=== PATIENT | male | born 1960 | race Caucasian/White ===

== ENCOUNTER 2016-07-11 07:10 | Outpatient (CLI) | payer BC, OTHER | END 2016-07-11 07:11 | disposition home or self-care (01) | DX: E78.1 Pure hyperglyceridemia (principal); Z12.5 Encounter for screening for malignant neoplasm of prostate ==

== ENCOUNTER 2016-09-20 10:07 | Outpatient (CLI) | payer OTHER ==
--- NOTE | 2016-09-20 14:12 | Ultrasound Report ---
SCROTAL DUPLEX: 09/20/2016 CLINICAL INDICATION: Left testicular discomfort. TECHNIQUE: Real-time sonographic vascular imaging was performed by the design and sales consultant through the scrot um utilizing both color-flow and Doppler spectral analysis. Multiple authorization representative static images we re saved for review. FINDINGS: The right testicle measures 4.8 x 3.5 x 2.4 cm, and the left testicle measures 4.5 x 3.2 x 2.7 cm. Both testicles demonstrate normal flow and echotexture. Trace bilateral hydroceles are pre sent. The epididymides are unremarkable. No varicocele or hernia is identified. IMPRESSION: TRACE BILATERAL HYDROCELES. NO INTRATESTICULAR ABNORMALITY. JOB #: [id number] EXT JOB #:
== END 2016-09-20 10:08 | disposition home or self-care (01) ==
LOC: DI 10:07
PROVIDERS: ATTEND Family Medicine
DX: N43.3 Hydrocele, unspecified (principal)
CPT/HCPCS: 76870

== ENCOUNTER 2016-11-20 08:28 | Emergency (ER) | payer OTHER ==
[2016-11-20 08:41] VITALS: BP 146/98
[2016-11-20] MEDS ORDERED: NAPROXEN 250 MG TABLET PO STA (09:04)
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
[2016-11-20] MEDS ORDERED: NAPROXEN 250 MG TABLET PO ONE (09:10)
== END 2016-11-20 09:13 | disposition home or self-care (01) ==
LOC: ED 08:28
DX: T22.192A Burn of first degree of multiple sites of left shoulder and upper limb, except wrist and hand, initial encounter (principal); T22.191A Burn of first degree of multiple sites of right shoulder and upper limb, except wrist and hand, initial encounter; T20.19XA Burn of first degree of multiple sites of head, face, and neck, initial encounter; X08.8XXA Exposure to other specified smoke, fire and flames, initial encounter; Y92.219 Unspecified school as the place of occurrence of the external cause; Y99.0 Civilian activity done for income or pay; I10 Essential (primary) hypertension; K21.9 Gastro-esophageal reflux disease without esophagitis
CPT/HCPCS: 1040M; 99282; 99283; A9270

== ENCOUNTER 2016-12-27 15:32 | Outpatient (CLI) | payer OTHER ==
[2016-12-27 13:17] LABS: BASOPHILS % (AUTO) 0.2 %; EOSINOPHILS # (AUTO) 0.1 10^3/uL (0.0-0.7); EOSINOPHILS % (AUTO) 0.9 %; HCT - HEMATOCRIT 38.4 % (42.0-52.0); HGB - HEMOGLOBIN 13.4 g/dL (14.0-18.0); LYMPHOCYTES # (AUTO) 1.5 10^3/uL (1.5-3.5); LYMPHOCYTES % (AUTO) 20.9 %; MEAN CORPUSCULAR HGB CONC 34.9 g/dL (32.0-36.0); MEAN CORPUSCULAR VOLUME 85.9 fL (80.0-94.0); MONOCYTES # (AUTO) 0.5 10^3/uL (0.0-1.0); MONOCYTES % (AUTO) 6.9 %; NEUTROPHILS # (AUTO) 5.3 10^3/uL (1.5-6.6); NEUTROPHILS % (AUTO) 71.1 %; RED BLOOD COUNT 4.46 10^6/uL (4.70-6.10); RED CELL DISTRIBUTION WIDTH 14.9 % (12.0-15.0); UNCORRECTED WHITE BLOOD COUNT 7.4 x10^3/uL; WHITE BLOOD COUNT 7.4 x10^3/uL (4.8-10.8)
[2016-12-27 13:45] LABS: ALBUMIN/GLOBULIN RATIO 1.7 (1.0-2.2); BILIRUBIN,TOTAL 1.3 mg/dL (0.2-1.0); BUN - BLOOD UREA NITROGEN 18 mg/dL (6-20); CALCIUM 9.2 mg/dL (8.5-10.3); CARBON DIOXIDE - CO2 25 mmol/L (21-32); CHLORIDE 103 mmol/L (101-111); CHOL/HDL RATIO 3.4 (<5.0); CHOLESTEROL 161 mg/dL; CREATININE 0.9 mg/dL (0.6-1.2); GFR - MDRD 87 (>89); GLUCOSE 103 mg/dL (70-100); HDL CHOLESTEROL 48 mg/dL; LDL/HDL RATIO 1.7 (<3.6); SODIUM 135 mmol/L (135-145); TOTAL PROTEIN 7.2 g/dL (6.7-8.2); TRIGLYCERIDES 155 mg/dL; VLDL CHOLESTEROL 31 mg/dL
[2016-12-27 13:53] LABS: HEMOGLOBIN A1C 0.44 g/dL
== END 2016-12-27 15:33 | disposition home or self-care (01) ==
LOC: LAB.WCP 15:32
PROVIDERS: ATTEND Family Medicine
DX: E78.1 Pure hyperglyceridemia (principal); R73.01 Impaired fasting glucose; I10 Essential (primary) hypertension
CPT/HCPCS: 36415; 80053; 80061; 83036; 85025

== ENCOUNTER 2017-06-10 13:04 | Outpatient (CLI) | payer OTHER ==
--- NOTE | 2017-06-10 14:50 | XRAY Report ---
BONE LENGTH STUDY: 06/10/2017 CLINICAL INDICATION: History of trauma, leg length discrepancy. FINDINGS: AP scanogram of the lower extremities was performed. The right femur measures 51.2 cm, and the left femur measures 52.0 cm. Right lower leg measures 39.6 cm, and the left lower leg measures 39.6 cm. IMPRESSION: LESS THAN 1 CM FEMORAL LENGTH DISCREPANCY, RIGHT 8 MM SHORTER THAN LEFT. TD: 06/10/2017 14:50
== END 2017-06-10 13:05 | disposition home or self-care (01) ==
LOC: DI 13:04
PROVIDERS: ATTEND Podiatrist
DX: M21.751 Unequal limb length (acquired), right femur (principal)
CPT/HCPCS: 77073

== ENCOUNTER 2017-06-24 07:07 | Outpatient (CLI) | payer OTHER ==
[2017-06-24 12:28] LABS: BASOPHILS % (AUTO) 0.3 %; EOSINOPHILS # (AUTO) 0.1 10^3/uL (0.0-0.7); EOSINOPHILS % (AUTO) 1.8 %; HGB - HEMOGLOBIN 13.1 g/dL (14.0-18.0); LYMPHOCYTES # (AUTO) 1.9 10^3/uL (1.5-3.5); LYMPHOCYTES % (AUTO) 32.9 %; MEAN CORPUSCULAR HEMOGLOBIN 29.5 pg (27.0-31.0); MEAN CORPUSCULAR HGB CONC 34.9 g/dL (32.0-36.0); MEAN CORPUSCULAR VOLUME 84.4 fL (80.0-94.0); MEAN PLATELET VOLUME 7.8 fL (7.4-11.4); MONOCYTES # (AUTO) 0.3 10^3/uL (0.0-1.0); MONOCYTES % (AUTO) 5.8 %; NEUTROPHILS # (AUTO) 3.5 10^3/uL (1.5-6.6); NEUTROPHILS % (AUTO) 59.2 %; PLT - PLATELET COUNT 209 10^3/uL (130-450); RED BLOOD COUNT 4.44 10^6/uL (4.70-6.10); RED CELL DISTRIBUTION WIDTH 15.3 % (12.0-15.0); WHITE BLOOD COUNT 5.8 x10^3/uL (4.8-10.8)
[2017-06-24 12:44] LABS: ALBUMIN 4.7 g/dL (3.2-5.5); ALBUMIN/GLOBULIN RATIO 1.8 (1.0-2.2); ALKALINE PHOSPHATASE 32 IU/L (42-121); ALT ALANINE AMINOTRANSFERASE 62 IU/L (10-60); AST ASPARTATE AMINOTRANSFERASE 43 IU/L (10-42); BILIRUBIN,TOTAL 1.1 mg/dL (0.2-1.0); BUN - BLOOD UREA NITROGEN 18 mg/dL (6-20); CALCIUM 9.2 mg/dL (8.5-10.3); CARBON DIOXIDE - CO2 26 mmol/L (21-32); CHLORIDE 104 mmol/L (101-111); CHOL/HDL RATIO 3.2 (<5.0); CHOLESTEROL 138 mg/dL; GFR - MDRD 77 (>89); GLUCOSE 101 mg/dL (70-100); HDL CHOLESTEROL 43 mg/dL; LDL CHOLESTEROL,CALCULATED 70 mg/dL; LDL/HDL RATIO 1.6 (<3.6); SODIUM 136 mmol/L (135-145); TOTAL PROTEIN 7.3 g/dL (6.7-8.2); VLDL CHOLESTEROL 25 mg/dL
[2017-06-24 13:22] LABS: HB2 TOTAL 13.9 g/dL; HEMOGLOBIN A1C 0.43 g/dL
== END 2017-06-24 07:08 | disposition home or self-care (01) ==
LOC: LAB.WCP 07:07
PROVIDERS: ATTEND Family Medicine
DX: Z00.00 Encounter for general adult medical examination without abnormal findings (principal); E78.1 Pure hyperglyceridemia; I10 Essential (primary) hypertension; R73.01 Impaired fasting glucose
CPT/HCPCS: 36415; 80053; 80061; 83036; 83721; 84443; 85025

== ENCOUNTER 2017-08-07 14:10 | Outpatient (CLI) | payer OTHER ==
[2017-08-07 19:14] LABS: ALBUMIN 4.6 g/dL (3.2-5.5); ALBUMIN/GLOBULIN RATIO 1.8 (1.0-2.2); BILIRUBIN,TOTAL 1.1 mg/dL (0.2-1.0); CALCIUM 9.4 mg/dL (8.5-10.3); TOTAL PROTEIN 7.1 g/dL (6.7-8.2)
== END 2017-08-07 14:11 | disposition home or self-care (01) ==
LOC: LAB.WCP 14:10
PROVIDERS: ATTEND Family Medicine
DX: R74.8 Abnormal levels of other serum enzymes (principal); Z12.5 Encounter for screening for malignant neoplasm of prostate
CPT/HCPCS: 36415; 80053; 84153

== ENCOUNTER 2017-10-08 17:55 | Outpatient (CLI) | payer OTHER ==
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
== END 2017-10-08 17:56 | disposition home or self-care (01) ==
LOC: DI 17:55
PROVIDERS: ATTEND Family Medicine
DX: S80.01XA Contusion of right knee, initial encounter (principal); M25.462 Effusion, left knee; M25.461 Effusion, right knee
CPT/HCPCS: 76882

== ENCOUNTER 2018-01-14 07:10 | Outpatient (CLI) | payer OTHER ==
[2018-01-14 13:55] LABS: BASOPHILS % (AUTO) 0.3 %; EOSINOPHILS # (AUTO) 0.1 10^3/uL (0.0-0.7); EOSINOPHILS % (AUTO) 1.3 %; HGB - HEMOGLOBIN 13.7 g/dL (14.0-18.0); LYMPHOCYTES # (AUTO) 1.9 10^3/uL (1.5-3.5); LYMPHOCYTES % (AUTO) 31.4 %; MEAN CORPUSCULAR HEMOGLOBIN 30.1 pg (27.0-31.0); MEAN CORPUSCULAR VOLUME 86.1 fL (80.0-94.0); MONOCYTES # (AUTO) 0.3 10^3/uL (0.0-1.0); NEUTROPHILS # (AUTO) 3.7 10^3/uL (1.5-6.6); PLT - PLATELET COUNT 227 10^3/uL (130-450); RED BLOOD COUNT 4.56 10^6/uL (4.70-6.10); RED CELL DISTRIBUTION WIDTH 14.8 % (12.0-15.0); WHITE BLOOD COUNT 5.9 x10^3/uL (4.8-10.8)
[2018-01-14 14:03] LABS: ALBUMIN 4.5 g/dL (3.2-5.5); ALBUMIN/GLOBULIN RATIO 1.6 (1.0-2.2); BILIRUBIN,TOTAL 1.5 mg/dL (0.2-1.0); CALCIUM 9.5 mg/dL (8.5-10.3); TOTAL PROTEIN 7.3 g/dL (6.7-8.2)
== END 2018-01-14 07:11 | disposition home or self-care (01) ==
LOC: LAB.WCP 07:10
PROVIDERS: ATTEND Physician Assistant
DX: R74.8 Abnormal levels of other serum enzymes (principal); I10 Essential (primary) hypertension
CPT/HCPCS: 36415; 80053; 85025

== ENCOUNTER 2018-04-08 07:34 | Outpatient (CLI) | payer OTHER ==
--- NOTE | 2018-04-08 12:19 | MRI Report ---
Reason: L KNEE PAIN LOCKING Procedure Date: 04/08/2018 Accession Number: [id number] / [id number] Procedure: MRI - Knee LT W/O CPT Code: FULL RESULT: EXAM: LEFT KNEE MRI WITHOUT CONTRAST EXAM DATE: 04/08/2018 08:23 AM. CLINICAL HISTORY: Left knee pain for 2 years. COMPARISON: KNEE 3 VIEW LT 05/10/2016 8:15 AM. TECHNIQUE: Multiplanar, multisequence T1-weighted and fluid-sensitive sequences of the knee without contrast. Other: None. FINDINGS: Bones and Articular Cartilage: Grade II chondromalacia at the medial femoral condyle and medial tibial plateau. Grade II chondromalacia at the lateral femoral condyle and lateral tibial plateau. Small full-thickness articular cartilage fissure at the medial patellar facet. Focal grade II chondromalacia and small subcortical cyst at the femoral trochlear groove. No patellar subluxation. No acute fracture. Enthesophyte at the anterosuperior aspect of the patella. Medial Meniscus: Focal fraying or tiny radial tear at the free edge of the posterior horn. Lateral Meniscus: Free edge fraying at the lateral meniscal body. Grade 2 signal versus a horizontal tear at the medial aspect of the anterior horn and the anterior meniscal root ligament. Cruciate Ligaments: The anterior and posterior cruciate ligaments are intact. Collateral Ligaments: The medial collateral and lateral collateral ligamentous structures are intact. Tendons: The quadriceps, patellar, semimembranosus, and popliteus tendons are unremarkable. Musculature: No edema or fatty atrophy. Other: No effusion. No popliteal cyst. No loose bodies. The medial and lateral retinacula are intact. The subcutaneous tissues and fat pads are unremarkable. IMPRESSION: 1. Tricompartmental chondromalacia. 2. Focal fraying or a tiny radial tear at the free edge of the posterior horn medial meniscus. 3. Free edge fraying at the lateral meniscal body. Grade 2 signal versus a horizontal tear at the medial aspect of the anterior horn and anterior meniscal root ligament of the lateral meniscus. [facility] MUSCULOSKELETAL RADIOLOGY SECTION
== END 2018-04-08 07:35 | disposition home or self-care (01) ==
LOC: DI 07:34
PROVIDERS: ATTEND Orthopaedic Surgery
DX: M94.262 Chondromalacia, left knee (principal); S83.242A Other tear of medial meniscus, current injury, left knee, initial encounter; S83.282A Other tear of lateral meniscus, current injury, left knee, initial encounter

== ENCOUNTER 2018-09-04 08:00 | Outpatient (CLI) | payer OTHER ==
[2018-09-04 14:15] LABS: ALBUMIN 4.6 g/dL (3.2-5.5); ALBUMIN/GLOBULIN RATIO 1.5 (1.0-2.2); CALCIUM 9.9 mg/dL (8.5-10.3); CREATININE 0.9 mg/dL (0.6-1.2); TOTAL PROTEIN 7.7 g/dL (6.7-8.2)
== END 2018-09-04 23:59 | disposition home or self-care (01) ==
LOC: LAB.WCP 08:00
PROVIDERS: ATTEND Family Medicine
DX: R74.8 Abnormal levels of other serum enzymes (principal)
CPT/HCPCS: 36415; 80053

== ENCOUNTER 2018-11-13 11:47 | Emergency (ER) | payer OTHER ==
[2018-11-13 12:15] VITALS: BP 126/80
[2018-11-13] MEDS ORDERED: BUFFERED LIDOCAINE 10 ML SYRINGE SUBQ STA (12:25)
[2018-11-13] MEDS ORDERED: TETANUS/DIPHTHERIA/PERTUSSIS 0.5 ML SYRINGE IM ONE (12:44)
--- NOTE | 2018-11-13 12:47 | ED Physician Documentation ---
PD HPI UPPER EXT INJURY - Stated complaint Stated Complaint: FOREIGN OBJECT IN R ARM - Chief complaint Chief Complaint: Ext Problem - History obtained from History obtained from: Patient - History of Present Illness Location: Right (58-year-old gentleman with unknown tetanus status was at work today, he was lifting a piece of plywood and it rubbed against his right forearm and he has a splinter retained in the right forearm. No other injuries. Pain is mild.) Review of Systems Constitutional: reports: Reviewed and negative Throat: reports: Reviewed and negative Cardiac: reports: Reviewed and negative PD PAST MEDICAL HISTORY - Past Medical History Past Medical History: Yes Cardiovascular: Hypertension Respiratory: None GI: GERD : None HEENT: None Psych: None Musculoskeletal: None Derm: None - Past Surgical History Past Surgical History: Yes - Present Medications Home Medications: Ambulatory Orders Medication Instructions Recorded Confirmed Fexofenadine [Terrie] 180 mg PO DAILY 04/27/13 04/27/13 Glucosamine Sulfate Dipot Chlr 1,000 mg PO DAILY 04/27/13 04/27/13 [Glucosamine] Lisinopril/Hydrochlorothiazide 1 each PO DAILY 04/27/13 04/27/13 [Lisinopril-Hctz 10-12.5 mg Tab] Metoprolol Succinate 50 mg PO DAILY 04/27/13 04/27/13 Omeprazole [Prilosec] 20 mg PO DAILY 04/27/13 04/27/13 Fluticasone 110 Mcg [Flovent] 1 spray DAILY 11/20/16 11/20/16 - Allergies Allergies/Adverse Reactions: Allergies Allergy/AdvReac Type Severity Reaction Status Date / Time No Known Drug Allergies Allergy Verified 04/26/13 16:30 - Social History Does the pt smoke?: No Smoking Status: Never smoker PD ED PE NORMAL - Vitals Vital signs reviewed: Yes - General General: Alert and oriented X 3, No acute distress - Extremities Extremities: Other (There is a palpable subcutaneous foreign body measuring maybe 1 to 2 cm long consistent with a splinter in the mid lateral right forearm ) - Neuro Neuro: Alert and oriented X 3, Normal speech Results - Vitals Vitals: Vital Signs - 24 hr 11/13/18 12:13 Temperature 36.5 C Heart Rate 63 Respiratory 14 Rate Blood Pressure 126/80 O2 Saturation 100 Oxygen O2 Source Room air Procedures - FB removal FB location: Subcutaneous FB removal preparation: Local anesthesia-specify (Buffered lidocaine) Removal method: Other (After prep with Hibiclens and sterile draping a tiny incision was made and I was a to grasp the splinter and was removed apparently in its entirety. Bandage was placed.) Departure - Departure Disposition: 01 Home, Self Care Clinical Impression: Foreign body in subcutaneous tissue Condition: Good Record reviewed to determine appropriate education?: Yes Instructions: ED Foreign Body Soft Tissue Removed Comments: Return if you develop signs of infection, increased pain, swelling, drainage, redness. Otherwise you can simply wash it with soap and water daily and keep it covered with a Band-Aid for a few days.
== END 2018-11-13 12:54 | disposition home or self-care (01) ==
LOC: ED 11:47
DX: S50.851A Superficial foreign body of right forearm, initial encounter (principal); W45.8XXA Other foreign body or object entering through skin, initial encounter; Y93.89 Activity, other specified; Y99.0 Civilian activity done for income or pay; I10 Essential (primary) hypertension
CPT/HCPCS: 10120; 1040M; 90471; 90715; 99282; 99283

== ENCOUNTER 2018-12-09 08:00 | Outpatient (CLI) | payer OTHER ==
[2018-12-09 11:51] LABS: BASOPHILS % (AUTO) 0.2 %; EOSINOPHILS # (AUTO) 0.1 10^3/uL (0.0-0.7); EOSINOPHILS % (AUTO) 1.1 %; HGB - HEMOGLOBIN 13.2 g/dL (14.0-18.0); LYMPHOCYTES # (AUTO) 1.7 10^3/uL (1.5-3.5); LYMPHOCYTES % (AUTO) 32.1 %; MEAN CORPUSCULAR HGB CONC 33.3 g/dL (32.0-36.0); MONOCYTES # (AUTO) 0.3 10^3/uL (0.0-1.0); MONOCYTES % (AUTO) 4.7 %; NEUTROPHILS # (AUTO) 3.3 10^3/uL (1.5-6.6); NEUTROPHILS % (AUTO) 61.5 %; PLT - PLATELET COUNT 211 10^3/uL (130-450); RED BLOOD COUNT 4.55 10^6/uL (4.70-6.10); RED CELL DISTRIBUTION WIDTH 14.9 % (12.0-15.0); WHITE BLOOD COUNT 5.4 x10^3/uL (4.8-10.8)
[2018-12-09 12:50] LABS: ALBUMIN 4.7 g/dL (3.2-5.5); ALBUMIN/GLOBULIN RATIO 1.7 (1.0-2.2); ALKALINE PHOSPHATASE 35 IU/L (42-121); ALT ALANINE AMINOTRANSFERASE 38 IU/L (10-60); AST ASPARTATE AMINOTRANSFERASE 30 IU/L (10-42); BILIRUBIN,TOTAL 1.4 mg/dL (0.2-1.0); BUN - BLOOD UREA NITROGEN 22 mg/dL (6-20); CALCIUM 9.6 mg/dL (8.5-10.3); CARBON DIOXIDE - CO2 26 mmol/L (21-32); CHLORIDE 103 mmol/L (101-111); CHOL/HDL RATIO 3.3 (<5.0); CHOLESTEROL 144 mg/dL; GFR - MDRD 77 (>89); GLUCOSE 94 mg/dL (70-100); HDL CHOLESTEROL 43 mg/dL; LDL CHOLESTEROL,CALCULATED 76 mg/dL; LDL/HDL RATIO 1.8 (<3.6); SODIUM 137 mmol/L (135-145); TOTAL PROTEIN 7.5 g/dL (6.7-8.2); VLDL CHOLESTEROL 25 mg/dL
[2018-12-09 13:11] LABS: HB2 TOTAL 13.8 g/dL; HEMOGLOBIN A1C 0.48 g/dL; HEMOGLOBIN A1C % 5.3 % (4.6-6.2)
== END 2018-12-09 23:59 | disposition home or self-care (01) ==
LOC: LAB.WCP 08:00
PROVIDERS: ATTEND Family Medicine
DX: R74.8 Abnormal levels of other serum enzymes (principal); I10 Essential (primary) hypertension; Z12.5 Encounter for screening for malignant neoplasm of prostate; E78.1 Pure hyperglyceridemia; R73.01 Impaired fasting glucose; F41.9 Anxiety disorder, unspecified
CPT/HCPCS: 36415; 80053; 80061; 83036; 83721; 84153; 84443; 85025

== ENCOUNTER 2019-01-19 11:19 | Day surgery (SDC) | payer OTHER ==
[2019-01-19] MEDS ORDERED: LACTATED RINGERS 1,000 ML IV ONE (11:57)
[2019-01-19] MEDS ORDERED: LIDO GARGLE 30 ML BOTTLE PO ONE (13:28)
[2019-01-19] MEDS ORDERED: LIDO GARGLE 30 ML BOTTLE ONE (13:29)
[2019-01-19 15:24] VITALS: BP 123/89
== END 2019-01-19 11:20 | disposition home or self-care (01) ==
LOC: SDS 11:19
PROVIDERS: ATTEND Internal Medicine Gastroenterology
PROC: 0DB78ZZ Excision of Stomach, Pylorus, Via Natural or Artificial Opening Endoscopic (ICD-10-PCS; 2019-01-19)
PROC: 0DJD8ZZ Inspection of Lower Intestinal Tract, Via Natural or Artificial Opening Endoscopic (ICD-10-PCS; principal; 2019-01-19 13:15)
PROC: 0DB38ZX Excision of Lower Esophagus, Via Natural or Artificial Opening Endoscopic, Diagnostic (ICD-10-PCS; 2019-01-19 13:15)
DX: Z12.11 Encounter for screening for malignant neoplasm of colon (principal); D17.79 Benign lipomatous neoplasm of other sites; K57.30 Diverticulosis of large intestine without perforation or abscess without bleeding; K21.9 Gastro-esophageal reflux disease without esophagitis; K31.7 Polyp of stomach and duodenum; K22.9 Disease of esophagus, unspecified; Z86.010 Personal history of colon polyps; I10 Essential (primary) hypertension; E66.3 Overweight; R06.83 Snoring
CPT/HCPCS: 43239; 45378; A9270; J7120

== ENCOUNTER 2019-03-18 09:07 | Emergency (ER) | payer OTHER ==
[2019-03-18 09:39] VITALS: BP 145/89
--- NOTE | 2019-03-18 11:57 | XRAY Report ---
Reason: KNEE SWELLING AFTER TWISTING FRIDAY Procedure Date: 03/18/2019 Accession Number: [id number] / [id number] Procedure: XR - Knee 4 View RT CPT Code: Final Report FULL RESULT: EXAM: RIGHT KNEE RADIOGRAPHY EXAM DATE: 03/18/2019 11:31 AM. CLINICAL HISTORY: Knee swelling after twisting Friday. COMPARISON: None. TECHNIQUE: 4 views. FINDINGS: Bones: Normal. No fractures or bone lesions. Joints: Trace suprapatellar joint effusion. Soft Tissues: Normal. No soft tissue swelling. IMPRESSION: No fracture or subluxation identified. [facility]
--- NOTE | 2019-03-18 12:30 | ED Physician Documentation ---
History of Present Illness - Stated complaint Stated Complaint: R KNEE SWELLING - Chief complaint Chief Complaint: Ext Problem - Additonal information Additional information: This is a 58 year old male who presents with R knee pain for 5 days. He has a history of past bursitis. He was kneeling at work on Friday and twisted it, since then he has had pain and swelling that has not improved with supportive care. It hurts to bend his knee. If he keeps it straight he can bear gutierrez wihtout pain. Review of Systems Constitutional: denies: Fever Skin: denies: Lesions Musculoskeletal: reports: Joint pain Neurologic: denies: Focal weakness Immunocompromised: denies: Immunocompromised PD PAST MEDICAL HISTORY - Past Medical History Cardiovascular: Hypertension Respiratory: None Endocrine/Autoimmune: None GI: GERD, Colon polyps, Diverticulitis : None HEENT: Chronic hearing loss Psych: None Musculoskeletal: Chronic back pain Derm: None - Past Surgical History Past Surgical History: Yes General: Colonoscopy Ortho: Other - Present Medications Home Medications: Ambulatory Orders Medication Instructions Recorded Confirmed Fexofenadine [Terrie] 180 mg PO DAILY 04/27/13 01/19/19 Glucosamine Sulfate Dipot Chlr 1,000 mg PO DAILY 04/27/13 01/19/19 [Glucosamine] Lisinopril/Hydrochlorothiazide 1 each PO DAILY 04/27/13 01/19/19 [Lisinopril-Hctz 10-12.5 mg Tab] Metoprolol Succinate 50 mg PO DAILY 04/27/13 01/19/19 Omeprazole [Prilosec] 20 mg PO DAILY 04/27/13 01/19/19 - Allergies Allergies/Adverse Reactions: Allergies Allergy/AdvReac Type Severity Reaction Status Date / Time weeds/grass Allergy Unknown Uncoded 03/18/19 09:39 - Social History Does the pt smoke?: No Smoking Status: Never smoker PD ED PE NORMAL - Vitals Vital signs reviewed: Yes - General General: Alert and oriented X 3 - HEENT HEENT: Atraumatic - Cardiac Cardiac: RRR - Respiratory Respiratory: No respiratory distress - Abdomen Abdomen: Non distended - Extremities Extremities: Other (Just superior to the R knee patella, there is an area of edema. No significant erythema. NO joint line pain. No laxity with testing of MCL, LCL, ACL, PCL. Pt is able to range his knee very well with some discomfort. Neurovascularly intact. 5/5 strength with knee flexion and extension.) - Neuro Neuro: Alert and oriented X 3 Results - Vitals Vitals: Oxygen O2 Source Room air - Rads (name of study) XR knee Radiology: Other (No acute osseous abnormality. Soft tissue swelling.) PD MEDICAL DECISION MAKING - ED course ED course: Pt has some swelling superior to his knee, his tendons appear intact, strength is normal suggesting no significant damage to extensor mechanism or flexors. No fever or signs of infection. No fracture on XR. strain/sprain or joint inflammation possible, a knee brace and supportive care was discussed, along with close PCP follow up and return precautions for worsening or with signs of infection. Pt agreed and was discharged home Departure - Departure Disposition: 01 Home, Self Care Clinical Impression: Knee pain Qualifiers: Chronicity: acute Laterality: right Qualified Code(s): M25.561 - Pain in right knee Condition: Good Instructions: ED RICE Follow-Up: Jg Rogers MD [Provider Admit Priv/Credential] - As Needed Kari Strong DO [Primary Care Provider] - Within 1 week Comments: Your x-ray did not show signs of any bone problems today. Please wear the brace whenever you are out of bed, and avoid any straining or twisting motions on your leg. If bearing weight on your leg causes you pain, use crutches. May take ibuprofen 600 mg every 6 hours and Tylenol 650 mg every 6 hours for pain. You may also use an Alex wrap to put compression over the area of swelling. If your pain is not improving over the next week, please follow-up with your primary care provider, you may need further imaging to assess for damage to the ligaments or tendons. If you have severely worsening pain or signs of infection such as fever please return to the emergency department Discharge Date/Time: 03/18/19 12:55
== END 2019-03-18 12:55 | disposition home or self-care (01) ==
LOC: ED 09:07
DX: M25.561 Pain in right knee (principal); X50.1XXA Overexertion from prolonged static or awkward postures, initial encounter; Y93.89 Activity, other specified; Y99.0 Civilian activity done for income or pay; I10 Essential (primary) hypertension
CPT/HCPCS: 99282; 99283

== ENCOUNTER 2019-12-31 08:20 | Outpatient (CLI) | payer OTHER ==
--- NOTE | 2019-12-31 12:06 | XRAY Report ---
PROCEDURE: Shoulder 2 View RT INDICATIONS: RIGHT SHOULDER PAIN/RIGHT WRIST PAIN TECHNIQUE: 2 views of the shoulder were acquired. COMPARISON: None. FINDINGS: Bones: No fractures or dislocations. No suspicious bony lesions. Visualized ribs appear intact. Mo derate right acromioclavicular joint osteoarthritis. Soft tissues: No suspicious soft tissue calcifications. IMPRESSION: 1. Moderate acromioclavicular joint osteoarthritis. 2. No acute osseous lesion. If there is continued clinical concern for pathology, then advanced imagi ng (CT, MR, bone scan) should be considered for further evaluation. Reviewed by: Taya Maki MD, PhD on 12/31/2019 12:04 PM PDT Approved by: Taya Maki MD, PhD on 12/31/2019 12:04 PM PDT Station ID: [id number]
--- NOTE | 2019-12-31 12:07 | XRAY Report ---
PROCEDURE: Wrist 3 View RT INDICATIONS: RIGHT WRIST PAIN TECHNIQUE: 3 views of the wrist were acquired. COMPARISON: None FINDINGS: Bones: No fractures or dislocations. No suspicious bony lesions. Soft tissues: No suspicious soft tissue calcifications. IMPRESSION: No fracture. No osseous lesion. If there is continued clinical concern for pathology, then repeat betty in film radiographs (7-10 days) or advanced imaging (CT, MR, bone scan) should be considered for furt her evaluation. Reviewed by: Taya Maki MD, PhD on 12/31/2019 12:05 PM PDT Approved by: Taya Maki MD, PhD on 12/31/2019 12:05 PM PDT Station ID: [id number]
== END 2019-12-31 08:21 | disposition home or self-care (01) ==
LOC: DI 08:20
PROVIDERS: ATTEND Family Medicine
DX: M19.011 Primary osteoarthritis, right shoulder (principal); M25.531 Pain in right wrist

== ENCOUNTER 2021-05-11 08:00 | Outpatient (CLI) | payer OTHER ==
--- NOTE | 2021-05-11 10:49 | XRAY Report ---
PROCEDURE: Ankle 3 View RT INDICATIONS: ANKLE PAIN, RIGHT TECHNIQUE: 3 views of the ankle were acquired. COMPARISON: September 08, 2017 FINDINGS: BONES: No acute, displaced fracture or dislocation. The ankle mortise is maintained on these nonstre ssed views. Small plantar calcaneal enthesophyte. SOFT TISSUES: Small tibiotalar joint effusion. Lateral soft tissue swelling. IMPRESSION: 1.No acute osseous abnormality. Reviewed by: Eliel Amezcua MD on 05/11/2021 10:47 AM [facility] Approved by: Eliel Amezcua MD on 05/11/2021 10:47 AM [facility] Station ID: [id number]
== END 2021-05-11 23:59 ==
LOC: DI.N 08:00
PROVIDERS: ATTEND Family Medicine
DX: M25.571 Pain in right ankle and joints of right foot (principal)

== ENCOUNTER 2021-10-04 07:07 | Outpatient (CLI) | payer OTHER ==
[2021-10-04 11:53] LABS: BASOPHILS % (AUTO) 0.4 %; EOSINOPHILS # (AUTO) 0.1 10^3/uL (0.0-0.7); EOSINOPHILS % (AUTO) 1.6 %; HCT - HEMATOCRIT 38.5 % (42.0-52.0); HGB - HEMOGLOBIN 12.6 g/dL (14.0-18.0); LYMPHOCYTES # (AUTO) 1.6 10^3/uL (1.5-3.5); LYMPHOCYTES % (AUTO) 32.7 %; MEAN CORPUSCULAR HEMOGLOBIN 28.7 pg (27.0-31.0); MEAN CORPUSCULAR HGB CONC 32.7 g/dL (32.0-36.0); MEAN CORPUSCULAR VOLUME 87.7 fL (80.0-94.0); MEAN PLATELET VOLUME 9.9 fL (7.4-11.4); MONOCYTES # (AUTO) 0.3 10^3/uL (0.0-1.0); MONOCYTES % (AUTO) 5.8 %; NEUTROPHILS % (AUTO) 59.1 %; PLT - PLATELET COUNT 209 10^3/uL (130-450); RED BLOOD COUNT 4.39 10^6/uL (4.70-6.10); RED CELL DISTRIBUTION WIDTH 15.2 % (12.0-15.0)
[2021-10-04 12:21] LABS: THYROID STIMULATING HORMONE 2.67 uIU/mL (0.34-5.60)
[2021-10-04 12:23] LABS: ALBUMIN 4.6 g/dL (3.2-5.5); ALBUMIN/GLOBULIN RATIO 1.9 (1.0-2.2); ALKALINE PHOSPHATASE 31 IU/L (42-121); ALT ALANINE AMINOTRANSFERASE 32 IU/L (10-60); AST ASPARTATE AMINOTRANSFERASE 24 IU/L (10-42); BUN - BLOOD UREA NITROGEN 16 mg/dL (6-20); CALCIUM 9.6 mg/dL (8.5-10.3); CARBON DIOXIDE - CO2 29 mmol/L (21-32); CHLORIDE 107 mmol/L (101-111); CHOL/HDL RATIO 2.7 (<5.0); CHOLESTEROL 124 mg/dL; CREATININE 0.9 mg/dL (0.6-1.2); GFR - MDRD 86 (>89); GLUCOSE 102 mg/dL (70-100); HDL CHOLESTEROL 46 mg/dL; LDL CHOLESTEROL,CALCULATED 68 mg/dL; LDL/HDL RATIO 1.5 (<3.6); POTASSIUM 4.3 mmol/L (3.5-5.0); SODIUM 141 mmol/L (135-145); TRIGLYCERIDES 52 mg/dL; VLDL CHOLESTEROL 10 mg/dL
[2021-10-04 14:34] LABS: ESTIMATED AVERAGE GLUCOSE 103 mg/dL (70-100); HEMOGLOBIN A1c% 5.2 % (4.27-6.07)
== END 2021-10-04 07:08 | disposition home or self-care (01) ==
LOC: LAB.N 07:07
PROVIDERS: ATTEND Nurse Practitioner Family
DX: I10 Essential (primary) hypertension (principal); E78.1 Pure hyperglyceridemia; Z79.899 Other long term (current) drug therapy
CPT/HCPCS: 36415; 80053; 80061; 83036; 83721; 84443; 85025

== ENCOUNTER 2021-11-15 20:35 | Outpatient (CLI) | payer OTHER | END 2021-11-15 20:36 | disposition home or self-care (01) | LOC: SC 20:35 | PROVIDERS: ATTEND Nurse Practitioner Family | DX: G47.33 Obstructive sleep apnea (adult) (pediatric) (principal) | CPT/HCPCS: 95810 ==

== ENCOUNTER 2021-12-06 13:33 | Outpatient (CLI) | payer OTHER ==
[2021-12-06 14:04] VITALS: BP 120/80
--- NOTE | 2021-12-06 14:04 | SLEEP CARE CONSULTATION ---
Information from patient questionnaire entered by Tremaine Hood. I have reviewed and concur with the information entered by Tremaine Hood. This document represents the service I personally performed and the decisions made by me, Harper Scales ARNP. History of Present Illness Service Date and Time: 12/06/2021 1333 Initial [place] Sleepiness Scale score: 12 (11/13/2021) Current [place] Sleepiness Scale score: 14 (12/06/21) Additional HPI information: FRANCIS PAYTON returns for follow up and results of the recently performed polysomnography. I explained the pathophysiology behind obstructive sleep apnea. We then spent quite a bit of time discussing different treatment options. For mild obstructive sleep apnea, surgery and oral appliance are alternatives to nasal CPAP therapy but in moderate or severe cases, nasal CPAP is the most effective and reliable treatment. Because apnea is primarily in supine position, then positional management therapy could be effective. Methods discussed such as positioning with pillows, using a T-shirt with tennis balls in the back, and shown commercial products that have a pillow format on back to prevent supine sleep. I reviewed the impact of weight changes on sleep apnea and strongly recommended losing weight. After some discussion, the patient opted to go with the nasal CPAP therapy. Nasal autoCPAP set at 4-15 cmH20 will be ordered with rationale explained. A manual titration study will be ordered if unable to find optimal pressure with office adjustments. I explained how CPAP machine works and what to expect when using the machine. Using CPAP every night in order to get used to it was emphasized. Patient advised to put CPAP mask on before getting into bed so as not to fall asleep without CPAP. To assist acclimation to CPAP use, it could also be used for a short time during day while reading or watching TV. The patient was instructed to call the CPAP supplier to discuss any mechanical problem that may occur. If the mask given is uncomfortable or is difficult to keep on through the night even with adjustment, contact the CPAP supplier as many will replace with another mask style if notified before 30 days. If snoring or perceives is not getting enough air or too much air from the machine, notify this office. Patient counseled not drink alcohol less than 4 hours before bedtime as it can increase snoring and apnea. Patient was cautioned about risks of drowsy driving until sleepiness symptoms resolve. Patient denies drowsy driving. Sleep Study - Results Type of Sleep Study: Polysomnography (DONE 11/15/21) Prior sleep studies: No Polysomnography/Home Sleep Study results: IMPRESSION: The quality of the study is good. The patient had reduced sleep efficiency due to a prolonged awakenings during the night. The sleep architecture was abnormal for sleep fragmentation and lack of slow wave sleep (N3). Respiratory monitoring showed severe obstructive sleep apnea- hypopnea (AHI = 43.3) associated with frequent arousals, oxyhemoglobin desaturation and moderate hypoxia (dinorah oxygen saturation of 74%). The respiratory events occurred almost exclusively during supine sleep (supine AHI = 63.9; non-supine = 0.59). Snore was moderate in intensity. There was no significant periodic leg movement of sleep. Cardiac rhythm was normal sinus rhythm without significant arrhythmia. No abnormal behavior (parasomnia) observed during the night. Allergies and Home Medications Home medication list reviewed: Yes (no changes) Allergy and home medication list: Allergies weeds/grass Allergy (Uncoded 03/18/19 09:39) Unknown Review of Systems Review of systems same as previous: No (Basal Cell skin CA removal) Physical Exam Vital signs obtained and entered by: ROBB ,DALLIN Blood Pressure: 120/80 (LEFT ARM ) Cuff size: regular Heart Rate: 61 O2 Saturation: 100 Height: 6 ft 2 in Weight: 197 lb Body Mass Index: 25.2 BMI Classification: Overweight Impression and Plan 1. Obstructive Sleep Apnea-Hypopnea Syndrome, severe, with lowest oxygen saturation of 74%. Obviously this is the cause of the patients symptoms of unrefreshed sleep, and excessive daytime sleepiness. Positive pressure therapy could benefit hypertension and gastric reflux. As mentioned above, the patient will be started on nasal autoCPAP therapy with pressure set at 4-15 cmH2O. Compliance guidelines also reviewed. A copy of compliance guidelines will be given for reference at check out. Because the apnea is more severe supine, I instructed to avoid sleeping supine using pillow positioning until able to start CPAP use. 2. Hypoxemia, moderate, with a dinorah oxygen saturation of 74% and 30.3 minutes spent under 90%. His baseline oxygen saturation was normal with an average oxygen saturation of 94%. * Nasal auto CPAP therapy, pressure at 4-15 cm H2O. * Attempt to lose weight. * Avoid alcohol consumption near bedtime. * Avoid supine sleep until using CPAP. * The patient is again cautioned about driving until sleepiness completely resolves. * Return one month after CPAP obtained. I will assess response to therapy and compliance at that time. Counseling Topics: Sleeping position, Weight loss health impact Visit Type: In Office Time Spent with Patient (minutes): 21 Provider Statement: I spent 100% of the Face to Face Visit with the patient with greater than 50% spent counseling the patient and coordination of care.
== END 2021-12-06 13:34 | disposition home or self-care (01) ==
LOC: SC 13:33
PROVIDERS: ATTEND Nurse Practitioner Family
DX: G47.33 Obstructive sleep apnea (adult) (pediatric) (principal); R09.02 Hypoxemia; E66.3 Overweight; Z68.25 Body mass index [BMI] 25.0-25.9, adult
CPT/HCPCS: 99212; 99213

== ENCOUNTER 2022-02-25 08:46 | Outpatient (CLI) | payer OTHER ==
--- NOTE | 2022-02-25 09:50 | XRAY Report ---
PROCEDURE: Knee 3 View RT INDICATIONS: R KNEE PX TECHNIQUE: 3 views of the right knee(s) were acquired. COMPARISON: None. FINDINGS: There is no evidence for acute fracture or dislocation involving the patient's right knee. There is m ild to moderate tricompartmental osteoarthritic type degenerative change present. No significant knee joint effusion is seen. There is soft tissue swelling overlying the patella which may represent prepatellar bursitis clinical correlation is recommended. IMPRESSION: 1. No evidence for acute osseous abnormality involving the patient's right knee. 2. [id number] tricompartmental osteoarthritic type degenerative change. 3. Soft tissue swelling over the prepatellar region may represent a prepatellar bursitis clinical cor relation is recommended. Reviewed by: Trae Key MD on 02/25/2022 9:49 AM PST Approved by: Trae Key MD on 02/25/2022 9:49 AM PST Station ID: [id number]
== END 2022-02-25 08:47 | disposition home or self-care (01) ==
LOC: DI.N 08:46
PROVIDERS: ATTEND Family Medicine
DX: M17.11 Unilateral primary osteoarthritis, right knee (principal); R22.41 Localized swelling, mass and lump, right lower limb

== ENCOUNTER 2022-07-24 09:22 | Outpatient (CLI) | payer OTHER ==
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
--- NOTE | 2022-07-24 11:20 | XRAY Report ---
PROCEDURE: Hips 2V BILAT INDICATIONS: HIP JOINT APIN TECHNIQUE: 2 views of each hip were acquired. COMPARISON: None. FINDINGS: Bones: No fractures or dislocations. No suspicious bony lesions. Mild to moderate degenerative sc lerosis and slight spurring at the pubic symphysis. Minor, symmetric femoral acetabular joint space l oss. Soft tissues: No suspicious soft tissue calcifications or masses. IMPRESSION: Mild to moderate degenerative changes. Reviewed by: Fatmata Blanchard MD on 07/24/2022 11:19 AM PDT Approved by: Fatmata Blanchard MD on 07/24/2022 11:19 AM PDT Station ID: [id number]
== END 2022-07-24 09:23 | disposition home or self-care (01) ==
LOC: DI 09:22
PROVIDERS: ATTEND Nurse Practitioner Family
DX: M16.12 Unilateral primary osteoarthritis, left hip (principal); M47.816 Spondylosis without myelopathy or radiculopathy, lumbar region; M51.36 Other intervertebral disc degeneration, lumbar region

== ENCOUNTER 2022-12-24 15:31 | Outpatient (CLI) | payer OTHER | END 2022-12-24 15:32 | disposition EMS.NT | LOC: EMS 15:31 | DX: Z04.1 Encounter for examination and observation following transport accident (principal) ==

== ENCOUNTER 2023-02-05 07:07 | Outpatient (CLI) | payer OTHER ==
[2023-02-05 11:50] LABS: BASOPHILS % (AUTO) 0.2 %; EOSINOPHILS # (AUTO) 0.1 10^3/uL (0.0-0.7); EOSINOPHILS % (AUTO) 1.4 %; HCT - HEMATOCRIT 40.2 % (42.0-52.0); LYMPHOCYTES # (AUTO) 1.4 10^3/uL (1.5-3.5); LYMPHOCYTES % (AUTO) 25.2 %; MEAN CORPUSCULAR HEMOGLOBIN 28.2 pg (27.0-31.0); MEAN CORPUSCULAR HGB CONC 32.3 g/dL (32.0-36.0); MEAN CORPUSCULAR VOLUME 87.2 fL (80.0-94.0); MEAN PLATELET VOLUME 9.9 fL (7.4-11.4); MONOCYTES # (AUTO) 0.3 10^3/uL (0.0-1.0); MONOCYTES % (AUTO) 5.7 %; NEUTROPHILS # (AUTO) 3.8 10^3/uL (1.5-6.6); NEUTROPHILS % (AUTO) 67.3 %; PLT - PLATELET COUNT 257 10^3/uL (130-450); RED BLOOD COUNT 4.61 10^6/uL (4.70-6.10); RED CELL DISTRIBUTION WIDTH 14.8 % (12.0-15.0); WHITE BLOOD COUNT 5.6 x10^3/uL (4.8-10.8)
[2023-02-05 12:13] LABS: THYROID STIMULATING HORMONE 2.83 uIU/mL (0.34-5.60)
[2023-02-05 12:17] LABS: ALBUMIN 5.1 g/dL (3.2-5.5); ALBUMIN/GLOBULIN RATIO 2.3 (1.0-2.2); ALKALINE PHOSPHATASE 39 IU/L (42-121); ALT ALANINE AMINOTRANSFERASE 24 IU/L (10-60); AST ASPARTATE AMINOTRANSFERASE 22 IU/L (10-42); BILIRUBIN,TOTAL 0.9 mg/dL (0.2-1.0); BUN - BLOOD UREA NITROGEN 18 mg/dL (6-20); CARBON DIOXIDE - CO2 28 mmol/L (21-32); CHLORIDE 102 mmol/L (101-111); CHOL/HDL RATIO 2.3 (<5.0); CHOLESTEROL 107 mg/dL; CREATININE 0.9 mg/dL (0.6-1.3); GFR - MDRD 86 (>89); GLUCOSE 93 mg/dL (74-104); HDL CHOLESTEROL 46 mg/dL; LDL CHOLESTEROL,CALCULATED 46 mg/dL; POTASSIUM 4.3 mmol/L (3.5-4.5); SODIUM 137 mmol/L (135-145); TOTAL PROTEIN 7.3 g/dL (6.4-8.9); TRIGLYCERIDES 75 mg/dL (48-352); VLDL CHOLESTEROL 15 mg/dL
== END 2023-02-05 07:08 | disposition home or self-care (01) ==
LOC: LAB.N 07:07
PROVIDERS: ATTEND Nurse Practitioner Family
DX: I10 Essential (primary) hypertension (principal); E78.1 Pure hyperglyceridemia
CPT/HCPCS: 36415; 80053; 80061; 83721; 84443; 85025

== ENCOUNTER 2023-02-07 11:42 | Outpatient (CLI) | payer OTHER | END 2023-02-07 11:43 | disposition home or self-care (01) | LOC: LAB.N 11:42 | PROVIDERS: ATTEND Nurse Practitioner Family | DX: Z12.5 Encounter for screening for malignant neoplasm of prostate (principal); R35.0 Frequency of micturition | CPT/HCPCS: 36415; 84153 ==